=== PATIENT | male | born 1965 ===

== ENCOUNTER 2016-12-03 08:01 | Emergency (ER) | payer SELFPAY ==
--- NOTE | 2016-12-10 17:50 | ER ---
ADMIT: 12/03/2016 RM/LOC: ER [facility] MR#: [id number] [address] [facility] [id number] ANNMARIE COTE [address] [place], [place] [id number] Emergency Room Report SEX: M AGE: 51 : 1965 DATE: 12/03/2016 ADDENDUM: This patient comes to the ER because he thinks he has a cyst on his buttocks. On physical exam, he does have a thrombosed hemorrhoid. I infiltrated the area with lidocaine and then used an 11 blade and was able to express a very large blood clot. I wrote a prescription for Anusol-HC. We will have him keep his stool soft. Sitz baths and follow up with the surgeon if it continues to bother him. Please see my T-sheet. DREW Ibrahim / Oziel Irving MD / tammie JOB #: [id number] CC: Oziel Irving MD, Attending Physician Greg Ohara MD, Family Physician
== END 2016-12-03 09:30 | disposition home or self-care (01) ==
LOC: ER 08:01
DX: K64.5 Perianal venous thrombosis (principal); Z98.890 Other specified postprocedural states

== ENCOUNTER 2016-12-04 08:13 | Emergency (ER) | payer SELFPAY ==
--- NOTE | 2016-12-11 14:37 | ER ---
ADMIT: 12/04/2016 RM/LOC: ER [facility] MR#: [id number] [address] [id number] ANNMARIE COTE [address] [place] [address] Emergency Room Report SEX: M AGE: 51 : 1965 DATE: 12/04/2016 ADDENDUM: CHIEF COMPLAINT: Hemorrhoid. HISTORY OF PRESENT ILLNESS: This is a 51-year-old, who was actually seen in the ER yesterday, had a hemorrhoid lanced at that time. Today, he comes back because it swelled up again. I did an incision and drain, please see T-sheet for that information. Told him to follow up with a surgeon for a complete hemorrhoidectomy, do warm baths, he continue to use the suppositories as needed. CLINICAL IMPRESSION: Thrombosed hemorrhoid incision and draining. DREW Nguyen / Oziel Irving MD / marilul JOB #: [id number] CC: Oziel Irving MD, Attending Physician
== END 2016-12-04 10:30 | disposition home or self-care (01) ==
LOC: ER 08:13
DX: K64.5 Perianal venous thrombosis (principal)